=== PATIENT | female | born 1990 | race Caucasian/White ===

== ENCOUNTER 2019-12-10 02:44 | Emergency (ER) | payer SELFPAY ==
[2019-12-10 02:46] VITALS: BP 115/88; PULSE 87; RESP 15; TEMP 36.6; O2SAT 100; BMI 21.0
--- NOTE | 2019-12-10 03:04 | RAD_ITS ---
STUDY: X-RAY - RIGHT RADIUS AND ULNA REASON FOR EXAM: Female, 28 years old. Pain in forearm, punched tree x2 days ago. TECHNIQUE: 2 view(s) of the forearm. COMPARISON: None. FINDINGS: There is no demonstrated soft tissue swelling. Normal visualized radius. Normal visualized ulna. RAD/Forearm 2 Views IMPRESSION: Normal x-ray examination of the radius and ulna. Electronically Signed: Luna Scott MD at 3:31 EDT , Service support ,
--- NOTE | 2019-12-10 03:04 | RAD_ITS ---
STUDY: X-RAY - RIGHT HAND REASON FOR EXAM: Female, 28 years old. Pain in third digit due to punching a tree x2 days ago. TECHNIQUE: 3 view(s) of the hand. COMPARISON: None. FINDINGS: Normal radiocarpal articulation. Normal distal radioulnar joint. Normal visualized carpal bones. Normal carpal articulations Normal carpometacarpal articulation of the thumb. Normal second through fifth carpometacarpal joints. Normal metacarpi. Normal metacarpophalangeal joint of the thumb. Normal interphalangeal joint of the thumb. Normal proximal and distal phalanges of the thumb. Normal metacarpophalangeal joints of the second through fifth fingers. Normal proximal and distal interphalangeal joints of the second through fifth fingers. Normal phalanges of the second through fifth fingers. Soft tissue prominence at the dorsal metacarpal carpal phalangeal level. RAD/Hand Min 3 Views IMPRESSION: Mild soft tissue swelling. There is no radiopaque foreign body. There is no acute displaced fracture or dislocation. Electronically Signed: Luna Scott MD at 3:32 EDT , Service support ,
--- NOTE | 2019-12-10 03:08 | ED.VISSUMM ---
- ER Visit Summary Date of Service: 12/10/19 Chief Complaint: Dog bite left thigh and right hand pain after punching a tree History of Present Illness: The patient is a 28 F history of prior fracture to hand and wrist. Patient states she was bit by a neighbor's dog on Tuesday. She got upset when that happened and punched a tree now complaining of right hand and forearm pain. She has had prior broken hand and wrist but never required surgery. She is right-hand dominant. Denies other complaints. Physical Examination: Well-appearing young female. Vital signs are stable afebrile. H EENT exam unremarkable. Neck nontender. Lungs clear to auscultation. Heart regular rhythm no murmur. Abdomen soft nontender. Patient moving all 4 extremities. Neurovascular intact. Her left distal anterior thigh there is a dog bite with bruising. There is no signs of cellulitis or infection. Is only mildly tender. She has full range of motion of both lower extremities. Left upper extremity unremarkable. Mid right forearm she has tenderness but no deformity. Right wrist is nontender normal range of motion no swelling. Right hand has tenderness to the index finger and also the right small finger MCP knuckle. There is no gross bony deformity. Hands neurovascular intact. Skin is intact. Neurologically she is awake and alert. Skin unremarkable except for the dog bite on her left thigh which is not infected and multiple tattoos. Test Results: Right hand x-ray 3 views read by myself shows no acute fracture or dislocation. Right forearm x-ray 2 views read by myself shows no acute fracture or dislocation. Emergency Department Course and Treatment: X-rays will be obtained to rule out any type of fracture of the hand or forearm. She was offered but deferred anything for pain at this time. The dog bite is bruised but not infected. Needs no further treatment. Treatment Plan: Ice and elevate her right hand and forearm. Tylenol Motrin for pain and swelling. Follow-up if not improving. Disposition: Discharge Impression: Dog bite left thigh Acute right hand contusion This note was generated with [employer] dictation software. It may contain incorrect words, spelling, and punctuation that were not noted in review of the chart prior to signing ED Disposition - Plan for ED Patient: Referrals: NOT,DEFINED [NON-STAFF] -
--- NOTE | 2019-12-10 03:30 | ED.DEP ---
ED Disposition - Plan for ED Patient: Disposition: Home or Assisted Living Instructions: ED BITE Dog, ED HAND CONTUSION Referrals: Sakshi Saez [NON-STAFF] - 1 Week if not improving Additional Instructions: Ice and elevate right hand to decrease pain and swelling. Motrin for pain and swelling and/or Tylenol. Follow-up with not improving. Your x-rays tonight did not show any broken bones.
[2019-12-10 03:44] VITALS: RESP 15
== END 2019-12-10 03:44 | disposition home or self-care (01) ==
PROVIDERS: Emergency Provider Emergency Medicine
DX: S60.221A Contusion of right hand, initial encounter (principal); S70.372A Other superficial bite of left thigh, initial encounter; W22.09XA Striking against other stationary object, initial encounter; W54.0XXA Bitten by dog, initial encounter; Y93.9 Activity, unspecified; Y92.9 Unspecified place or not applicable; Z72.0 Tobacco use
CPT/HCPCS: 73090; 73130; 99282